=== PATIENT | male | born 1990 | race Hispanic/Latino ===

== ENCOUNTER 2017-12-15 08:56 | Emergency (ER) | payer OTHER ==
[2017-12-15 09:09] VITALS: BP 118/85
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
[2017-12-15] MEDS ORDERED: FLEXERIL PO ONE (10:16)
[2017-12-15] MEDS ORDERED: NORCO 5/325 PO ONE (10:16)
== END 2017-12-15 10:50 | disposition home or self-care (01) ==
LOC: ED 08:56
DX: M79.1 Myalgia (principal); F17.200 Nicotine dependence, unspecified, uncomplicated; Z90.49 Acquired absence of other specified parts of digestive tract; Z90.89 Acquired absence of other organs; V87.7XXA Person injured in collision between other specified motor vehicles (traffic), initial encounter; Y93.89 Activity, other specified; Y99.8 Other external cause status; Y92.410 Unspecified street and highway as the place of occurrence of the external cause
CPT/HCPCS: 99282